=== PATIENT | female | born 1980 | race Caucasian/White ===

== ENCOUNTER → 2024-11-04 | Outpatient (CLI) | payer BC, SELFPAY ==
--- NOTE | 2024-11-04 09:22 | XR_ITS ---
Examination: Abdomen sonogram, complete Date and time of exam: November 04, 2024 0938 hours INDICATIONS: Abdominal pain beginning 4 years ago. Technique: Multiple real-time grayscale transabdominal sonographic images of the abdomen have been obtained. Findings: Multiple gallstones Gallbladder wall 0.2 cm Common bile duct 0.3 cm Pancreatic head 2.7 cm Aorta not enlarged Liver 13.7 cm fatty infiltration benign liver cysts, the largest 26 mm Normal hepatopedal portal venous flow Patent IVC Right kidney 10.8 x 5.6 x 5.8 cm renal cortex 1.2 cm Left kidney 10.2 x 5.3 x 6.3 cm cortex 1.5 cm No hydronephrosis Spleen 9.9 cm IMPRESSION: Cholelithiasis, negative for cholecystitis
== END | disposition home or self-care (01) ==
LOC: CDIM 09:03
PROVIDERS: PCP Family Medicine; Referring Provider Physician Assistant; Visit Provider Physician Assistant
DX: K80.20 Calculus of gallbladder without cholecystitis without obstruction (principal)
CPT/HCPCS: 76700

== ENCOUNTER 2025-06-01 08:29 | Outpatient (AMB) | payer BC, SELFPAY ==
--- NOTE | 2025-06-01 08:40 | PD.ORTHCLVIS ---
Vital signs 06/01/25 08:41 Height 1.57 m Height Method Measured Weight 74.191 kg Weight Measurement Method Standing Scale BMI 29.9 BP 127/82 Blood Pressure Source Automatic Cuff Blood Pressure Location Left Upper Arm Position Sitting Respiration 16 Pulse 69 Pulse Source Monitor Temp 97.8 F Temp Source Temporal Artery Scan Pulse Oximetry (%) 97 Oxygen Delivery Method Room Air Med/Allergies Allergies & Medications Allergies doxycycline Allergy (Mild, Verified 06/01/25 08:42) TURNS RED latex Allergy (Mild, Verified 06/01/25 08:42) Rash Medication Reconciliation cholecalciferol (vitamin D3) 125 mcg (5,000 unit) tablet (Vitamin D3) 1,250 mcg PO QWEEK 03/13/21 [History Confirmed 06/01/25] meloxicam 7.5 mg tablet 7.5 mg PO QDAY #45 tabs 06/01/25 [Rx] Exam Exam Patient is in no acute distress and is cooperative with the examination today. Breathing is nonlabored. Patient has a normal mood and affect. The patient has a gait that is nonantalgic Bilateral extremities were evaluated and demonstrates sensation intact to light touch. Palpable pedal pulses are present. No significant edema is present. Bilateral hips were examined. The patient has no pain with log roll of the hips. Internal rotation to 30 degrees and external rotation to 30 degrees is painless. Negative FADIR. Left knee was examined today. The left knee is in reasonable alignment. Range of motion from 0-120 degrees. Knee is stable to varus and valgus as well as AP translation with <5mm. Patient has a negative McMurrays. There is no pain with patellofemoral compression and no crepitus noted. The knee is nontender to palpation. The right knee was also examined. The right knee is in neutral alignment. Range of motion from 0-120 degrees. Knee is stable to varus and valgus as well as AP translation with <5mm. Patient has a negative McMurrays. There is no pain with patellofemoral compression and no crepitus noted. The knee is nontender to palpation diffusely. No x-rays are available to review today Assessment and Plan Problem List (1) Pain in right knee: Status: Acute Plan: Patient is a pleasant 44-year-old female with right knee pain and no current x-rays. We will get x-rays and see her back. We will likely start her with conservative treatment. She has had pain for over 6 years. Plan We will see her back after x-rays are done Office Procedures GNS Level of Care Nursing/Assessment Patient Status: Initial/New Patient Nursing Assessment/Reassesment: Medication Reconciliation, Update PMH in EMR and Vital Signs Coordination of Care: Complex Care and Chronic Disease 1-5, Education Complex Pt/Fam, Consent,records obtained, informed consent, Lab and Imaging orders, Results/Orders obtained and Staff clarify orders New Patient Charge New Patient Point Assignment: [id number] New Patient Point Charge: VEN[employer]IAN BL[employer] WORKER Level 3 ([id number]) MA Intake Visit Data Collection New Patient or Established: New Patient (never been to [facility]) Reason for Visit:: RIGHT KNEE PAIN Seen by Clinical Staff ONLY (RN/MA): No Edge Inker Heels Required: No PCP or OBGYN visit in last 3 months: Yes Hx Now: No Do You Feel Safe at Home: Yes Authorities Contacted: N/A Questionairres Past Medical History Past Medical History Have you ever been diagnosed with any of the following: Neurological Problems Cerebrovascular Accident (CVA): No Transient Ischemic Attacks (TIA): No Dementia: No Alzheimer's Disease: No Parkinson's Disease: No Brain Tumor: No Meningitis: No Seizures: No Epilepsy: No Multiple Sclerosis: No Cerebral Palsy: No Amyotrophic Lateral Sclerosis (ALS/Irasema Gehrig's): No Guillain-[place] Syndrome: No Spina Bifida: No Paralysis: No Peripheral Neuropathy: No Madden's Palsy: No Subdural Hematoma: No Migraine: Yes Head Trauma: No Spinal Cord Injury: No Traumatic Brain Injury: No Cardiology Problems Myocardial Infarction: No Cardiac Arrhythmia: No Atrial Fibrillation: No Angina: No Heart Murmur: No Coronary Artery Disease: No Atherosclerotic Heart Disease: No Peripheral Vascular Disease: No Hypercholesterolemia: No Aneurysm: No Congestive Heart Failure: No Congenital Heart Disease: No Valvular Heart Disease: No Rheumatic Fever: No Cardiomyopathy: No Edema: No Pericarditis: No Cellulitis: No Deep Vein Thrombosis: No Hypertension: No Hypotension: No Varicose Veins: No Respiratory Problems Chronic Obstructive Pulmonary Disease (COPD): No Asthma: No Bronchitis: No Emphysema: No Pneumonia: No Pulmonary Fibrosis: No Tuberculosis: No Pulmonary Embolism: No Pulmonary Edema: No Sleep Apnea: No CPAP Dependent: No Respiratory Aspiration: No Dyspnea: No Smoking: No Smoking Cessation Counseling: No Smoking Exposure: No Stomache/Intestinal Problems Hepatitis: Yes (A) Genital/Urinary Problems Renal Disease: No Reproductive Problems Previous Pregnancies: Yes (X5) Endocrine Problems Diabetes Mellitus Type 1: No Diabetes Mellitus Type 2: No Blood Problems Anemia: Yes Sickle Cell Disease: No Other Problems Hospitalization: No Shingles: No Falls: No Blood Transfusions: Yes Blood Transfusion Reaction: No Anesthesia Reactions: No Chemotherapy: No Radiation Therapy: No MRSA: No Chicken Pox: Yes Measles: No Mumps: No Cancer: No Subjective Visit Visit for: new patient and knee Immunization / Flu Flu Vaccine in the Last 12 Months: No Flu Vaccine Exclusion Criteria: Refused by Patient History of Present Illness Chief complaint: RIGHT KNEE PAIN Date of injury / onset of symptoms: 6 YEARS AGO Patient is a pleasant 44-year-old female with right knee pain has been ongoing for 6 years. She reports that she had a fall 6 years ago and the pain has increased since then. She has been trying ibuprofen. She has not had any injections or physical therapy. She reports the knee does feel irritated and is swollen. The pain is diffuse. There is also associated numbness and tingling that starts at the knee and radiates down the dorsal aspect of her foot and wiseman Personal History Occupation: CAREGIVER Red flag PMH: none BMI Counceling provided: Yes Pain Pain level (0-10): 3 Pain location: anterior Pain quality: sharp and burning Pain timing: night and increases with activity Associated signs & symptoms: numbness and stiffness Ambulatory data Ambulatory device: none Treatments Number of previous injections: 0 Improvement with previous injections: No Number of Physical Therapy sessions: 0 Improvement with PT: No Improvement with NSAIDS: yes Review of Systems Review of Systems: All systems negative unless otherwise noted in HPI.
[2025-06-01 08:41] VITALS: BP 127/82; PULSE 69; RESP 16; TEMP 36.6; O2SAT 97; BMI 29.9
--- NOTE | 2025-06-01 08:42 | XR_ITS ---
Examination: Bilateral AP knees single view Right knee PA lateral axial 3 views TECHNIQUE: Bilateral AP knees standing single view Right knee standing PA flexion, lateral standing, axial right knee 3 views total 4 views Date and time: 2024 hours INDICATIONS: Right knee pain after falling 6 years ago. FINDINGS: Advanced narrowing [id number] medial joint space right knee Significant osteoarthritis right patellofemoral joint No fracture Moderate narrowing medial joint space left knee IMPRESSION: Advanced narrowing [id number] medial joint space right knee Significant osteoarthritis right patellofemoral joint
== END 2025-06-01 08:49 | disposition home or self-care (01) ==
PROVIDERS: PCP Family Medicine; Referring Provider Family Medicine; Supervising Provider Orthopaedic Surgery Adult Reconstructive Orthopaedic Surgery; Visit Provider Orthopaedic Surgery Adult Reconstructive Orthopaedic Surgery
DX: M25.561 Pain in right knee (principal); M17.11 Unilateral primary osteoarthritis, right knee; R20.0 Anesthesia of skin; R20.2 Paresthesia of skin
CPT/HCPCS: 73564; 99203; G0463

== ENCOUNTER 2025-06-15 08:22 | Outpatient (AMB) | payer BC, SELFPAY ==
--- NOTE | 2025-06-15 08:36 | ORTHONT_ITS ---
Vital signs 06/15/25 08:37 Height 1.57 m Height Method Stated Weight 72.631 kg Weight Measurement Method Standing Scale BMI 29.5 BP 107/65 Blood Pressure Source Automatic Cuff Blood Pressure Location Left Upper Arm Position Sitting Respiration 18 Pulse 72 Pulse Source Monitor Temp 96.8 F Temp Source Temporal Artery Scan Pulse Oximetry (%) 93 L Oxygen Delivery Method Room Air Med/Allergies Allergies & Medications Allergies doxycycline Allergy (Mild, Verified 06/15/25 08:39) TURNS RED latex Allergy (Mild, Verified 06/15/25 08:39) Rash Medication Reconciliation cholecalciferol (vitamin D3) 125 mcg (5,000 unit) tablet (Vitamin D3) 1,250 mcg PO QWEEK 03/13/21 [History Confirmed 06/15/25] diclofenac sodium 1 % topical gel 4 g topical QID #100 grams 06/15/25 [Rx] meloxicam 7.5 mg tablet 7.5 mg PO QDAY #45 tabs 06/15/25 [Rx] Exam Exam Patient is in no acute distress and is cooperative with the examination today. Breathing is nonlabored. Patient has a normal mood and affect. The patient has a gait that is nonantalgic Bilateral extremities were evaluated and demonstrates sensation intact to light touch. Palpable pedal pulses are present. No significant edema is present. Bilateral hips were examined. The patient has no pain with log roll of the hips. Internal rotation to 30 degrees and external rotation to 30 degrees is painless. Negative FADIR. Left knee was examined today. The left knee is in reasonable alignment. Range of motion from 0-120 degrees. Knee is stable to varus and valgus as well as AP translation with <5mm. Patient has a negative McMurrays. There is no pain with patellofemoral compression and no crepitus noted. The knee is nontender to palpation. The right knee was also examined. The right knee is in neutral alignment. Range of motion from 0-120 degrees. Knee is stable to varus and valgus as well as AP translation with <5mm. Patient has a negative McMurrays. There is no pain with patellofemoral compression and no crepitus noted. The knee is nontender to palpation diffusely. X-rays demonstrate [id number] arthritis of the medial compartment of the right knee. There is minimal arthritis on the left Assessment and Plan Problem List (1) Pain in right knee: Status: Acute Plan: Patient is a pleasant 44-year-old female with right knee pain And weightbearing x-rays were. Her x-rays demonstrate significant arthritis of the right knee in the medial compartment. We discussed different treatment options. We discussed weight loss, anti-inflammatories, and injections She will call us if the pain worsens and she wants an inection Office Procedures GNS Level of Care Nursing/Assessment Patient Status: Established Patient Nursing Assessment/Reassesment: Medication Reconciliation, Update PMH in EMR and Vital Signs Coordination of Care: Complex Care and Chronic Disease 1-5, Education Complex Pt/Fam, Consent,records obtained, informed consent, Results/Orders obtained and Staff clarify orders Established Patient Charge Established Patient Point Assignment: 95 Established Patient Point Charge: Level 3 (80-115) MA Intake Visit Data Collection New Patient or Established: Established Patient (seen at [facility] within 3 years) Reason for Visit:: RIGHT KNEE PAIN Seen by Clinical Staff ONLY (RN/MA): No Insurance Sales Agent Required: No PCP or OBGYN visit in last 3 months: Yes Hx Now: No Do You Feel Safe at Home: Yes Authorities Contacted: N/A Questionairres Past Medical History Past Medical History Have you ever been diagnosed with any of the following: Neurological Problems Cerebrovascular Accident (CVA): No Transient Ischemic Attacks (TIA): No Dementia: No Alzheimer's Disease: No Parkinson's Disease: No Brain Tumor: No Meningitis: No Seizures: No Epilepsy: No Multiple Sclerosis: No Cerebral Palsy: No Amyotrophic Lateral Sclerosis (ALS/Irasema Gehrig's): No Guillain-[place] Syndrome: No Spina Bifida: No Paralysis: No Peripheral Neuropathy: No Madden's Palsy: No Subdural Hematoma: No Migraine: Yes Head Trauma: No Spinal Cord Injury: No Traumatic Brain Injury: No Cardiology Problems Myocardial Infarction: No Cardiac Arrhythmia: No Atrial Fibrillation: No Angina: No Heart Murmur: No Coronary Artery Disease: No Atherosclerotic Heart Disease: No Peripheral Vascular Disease: No Hypercholesterolemia: No Aneurysm: No Congestive Heart Failure: No Congenital Heart Disease: No Valvular Heart Disease: No Rheumatic Fever: No Cardiomyopathy: No Edema: No Pericarditis: No Cellulitis: No Deep Vein Thrombosis: No Hypertension: No Hypotension: No Varicose Veins: No Respiratory Problems Chronic Obstructive Pulmonary Disease (COPD): No Asthma: No Bronchitis: No Emphysema: No Pneumonia: No Pulmonary Fibrosis: No Tuberculosis: No Pulmonary Embolism: No Pulmonary Edema: No Sleep Apnea: No CPAP Dependent: No Respiratory Aspiration: No Dyspnea: No Smoking: No Smoking Cessation Counseling: No Smoking Exposure: No Stomache/Intestinal Problems Hepatitis: Yes (A) Genital/Urinary Problems Renal Disease: No Reproductive Problems Previous Pregnancies: Yes (X5) Endocrine Problems Diabetes Mellitus Type 1: No Diabetes Mellitus Type 2: No Blood Problems Anemia: Yes Sickle Cell Disease: No Other Problems Hospitalization: No Shingles: No Falls: No Blood Transfusions: Yes Blood Transfusion Reaction: No Anesthesia Reactions: No Chemotherapy: No Radiation Therapy: No MRSA: No Chicken Pox: Yes Measles: No Mumps: No Cancer: No Subjective Visit Visit for: follow up visit, knee and x-rays Immunization / Flu Flu Vaccine in the Last 12 Months: No Flu Vaccine Exclusion Criteria: Refused by Patient History of Present Illness Chief complaint: RIGHT KNEE PAIN Date of injury / onset of symptoms: 6 YEARS AGO Patient is a pleasant 44-year-old female with right knee pain has been ongoing for 6 years. She reports that she had a fall 6 years ago and the pain has increased since then. She has been trying ibuprofen. She has not had any injections or physical therapy. She reports the knee does feel irritated and is swollen. The pain is diffuse. There is also associated numbness and tingling that starts at the knee and radiates down the dorsal aspect of her foot and wiseman Personal History Occupation: CAREGIVER Red flag PMH: none BMI Counceling provided: Yes Pain Pain level (0-10): 3 Pain location: anterior Pain quality: sharp and burning Pain timing: night and increases with activity Associated signs & symptoms: numbness and stiffness Ambulatory data Ambulatory device: none Treatments Number of previous injections: 0 Improvement with previous injections: No Number of Physical Therapy sessions: 0 Improvement with PT: No Improvement with NSAIDS: yes Review of Systems Review of Systems: All systems negative unless otherwise noted in HPI.
[2025-06-15 08:37] VITALS: BP 107/65; PULSE 72; RESP 18; TEMP 36; O2SAT 93; BMI 29.5
== END 2025-06-15 09:14 | disposition home or self-care (01) ==
LOC: HODSRG 08:22
PROVIDERS: PCP Family Medicine; Referring Provider Family Medicine; Supervising Provider Orthopaedic Surgery Adult Reconstructive Orthopaedic Surgery; Visit Provider Orthopaedic Surgery Adult Reconstructive Orthopaedic Surgery
DX: M25.561 Pain in right knee (principal); M17.11 Unilateral primary osteoarthritis, right knee
CPT/HCPCS: 99213; G0463

== ENCOUNTER → 2025-07-13 | Outpatient (CLI) | payer BC, SELFPAY ==
--- NOTE | 2025-07-13 09:14 | XR_ITS ---
Examination: Pelvic ultrasound, transabdominal, complete Technique: Transabdominal ultrasound of the pelvis performed using grayscale imaging Date and time of exam: July 13, 2025 0929 hours INDICATIONS: Abdominal distention and bloating beginning 3 years ago FINDINGS: Uterus 7.8 cm endometrial stripe 0.4 cm No uterine mass or intrauterine gestation Right ovary 1.9 cm arterial flow. Left ovary 1.7 cm arterial flow IMPRESSION: Negative study
== END | disposition home or self-care (01) ==
PROVIDERS: PCP Nurse Practitioner Family; Referring Provider Nurse Practitioner Family; Visit Provider Nurse Practitioner Family
DX: R14.0 Abdominal distension (gaseous) (principal)
CPT/HCPCS: 76856